=== PATIENT | male | born 1945 | race Caucasian/White ===

== ENCOUNTER 2017-03-27 10:24 | Inpatient (IN) | payer MEDICARE ==
[2017-03-27] MEDS ORDERED: Ondansetron INJ* 2 MG/ML VIAL IV ONE (10:56)
[2017-03-27] MEDS ORDERED: Morphine INJ* 4 MG/ML 1 ML CARPUJECT IV ONE ×2 (10:56→13:03)
--- NOTE | 2017-03-27 11:06 | ED ---
Lower Extremity - HPI Summary HPI Summary: Pt here w/ Rt hip pain since fall out of bed this morning. States he "just fell " - lost his footing - no dizziness, SOB, chest pain, weakness. Reports falling forward and catching himself with his Rt arm and then landed on Rt hip. Denies head injury and no LOC, neck pain, shoulder pain, chest pain or UE pain. Denies numbness, tingling, weakness into LE's but pain is worse w/ moving Rt LE d/t hip pain. This is also worse w/ touching. Has not eaten breakfast nor had anything yet for pain. Lives alone at [place]. Denies medical issues and takes no medications. Smokes. - History of Current Complaint Chief Complaint: EDExtremityLower Stated Complaint: RT HIP PAIN Time Seen by Provider: 03/27/17 10:47 Hx Obtained From: Patient Pain Intensity: 6 - Allergies/Home Medications Allergies/Adverse Reactions: Allergies Allergy/AdvReac Type Severity Reaction Status Date / Time No Known Allergies Allergy Verified 03/27/17 10:59 Home Medications: Home Medications NK [No Home Medications Reported] 03/27/17 [History Confirmed 03/27/17] PMH/Surg Hx/FS Hx/Imm Hx Previously Healthy: Yes Endocrine/Hematology History: Denies: Hx Anticoagulant Therapy, Hx Blood Disorders Respiratory History: Reports: Hx Chronic Obstructive Pulmonary Disease (COPD) - Immunization History Date of Tetanus Vaccine: unknown Date of Influenza Vaccine: NO Infectious Disease History: No Infectious Disease History: Denies: Traveled Outside the [place] in Last 30 Days - Family History Known Family History: Positive: None - Social History Occupation: Retired Lives: Alone - [place] Alcohol Use: None Hx Substance Use: No Substance Use Type: Reports: None Hx Tobacco Use: Yes Smoking Status (MU): Current Every Day Smoker Length of Time of Smoking/Using Tobacco: <1PPD Review of Systems Constitutional: Negative Negative: Fever, Chills, Fatigue Eyes: Negative Negative: Photophobia, Blurred Vision, Diplopia ENT: Negative Negative: Dental Pain, Sore Throat Cardiovascular: Negative Negative: Chest Pain Respiratory: Negative Negative: Shortness Of Breath Gastrointestinal: Negative Negative: Abdominal Pain, Vomiting, Diarrhea, Nausea Positive: no symptoms reported Positive: Arthralgia Skin: Negative Neurological: Negative Negative: Headache, Weakness, Paresthesia, Numbness, Syncope, Slurred Speech Psychological: Normal All Other Systems Reviewed And Are Negative: Yes Physical Exam Triage Information Reviewed: Yes Vital Signs On Initial Exam: Initial Vitals Temp Pulse Resp BP Pulse Ox 99.2 F 81 24 168/94 98 03/27/17 10:37 03/27/17 10:37 03/27/17 10:37 03/27/17 10:37 03/27/17 10:37 Vital Signs Reviewed: Yes Appearance: Positive: Well-Appearing - appears comfortable lying on stretcher w / Rt hip flexed, Rt knee flexed and Rt ankle flexed - he does not want to move out of this position, Thin Skin: Positive: Warm, Dry - no erythema, no ecchymosis, no skin breakdown observed over affected area Head/Face: Positive: Normal Head/Face Inspection Eyes: Positive: Normal, EOMI, MARTI, Conjunctiva Clear ENT: Positive: Normal ENT inspection, Hearing grossly normal, Pharynx normal, TMs normal - no hemoptympanum Dental: Negative: Dental Fracture @ Neck: Positive: Supple, Nontender - no pain w/ ROM cervical spine Respiratory/Lung Sounds: Positive: Breath Sounds Present Cardiovascular: Positive: Normal, RRR, Pulses are Symmetrical in both Upper and Lower Extremities, S1, S2 Abdomen Description: Positive: Nontender, No Organomegaly, Soft Bowel Sounds: Positive: Present Musculoskeletal: Positive: Strength/ROM Intact - FROM UE's and Rt clavicle with deformity - NTTP and no crepitus (appears old), Limited @ - Pt can move toes and ankle on Rt but does not move knee and hip d/t pain., Pain @ - TTP over greater trochanter and SI joint; leg is flexed so cannot asses for classis signs of long and externally rotated Neurological: Positive: Sensory/Motor Intact, Alert, Oriented to Person Place, Time, CN Intact II-III Psychiatric: Positive: Normal - Aneta Coma Scale Coma Scale Total: 15 Diagnostics - Vital Signs Vital Signs Temp Pulse Resp BP Pulse Ox 03/27/17 10:37 99.2 F 81 24 168/94 98 - Laboratory Result Diagrams: 03/27/17 12:35 Lab Statement: Any lab studies that have been ordered have been reviewed, and results considered in the medical decision making process. Re-Evaluation - Re-Evaluation First Eval Change: Improved - pain improved w/ morphine 4mg however worse after XR's - additional 4mg ordered as pt is tolerating this well. Lower Extremity Course/Dx - Course Course Of Treatment: Pt presents w/ Rt hip pain after falling out of bed this morning. Denies any other injuries and was alert throughout the process. He denies medical issues and admits to smoking just less than 1 PPD. His XR report (and image reviewed) reveals Rt femoral neck fx. Spoke w/ Dr. Stevenson who agrees to perform surgery tomorrow - will admit to medicine. Dr. Martin accepts pt. Pre-op w/u initiated and CT pelvis ordered for further information for Dr. Stevenson. Pt comfortable at time of transition of care. - Diagnoses Provider Diagnoses: Closed right hip fracture Discharge - Discharge Plan Condition: Stable Disposition: ADMITTED TO [facility]
--- NOTE | 2017-03-27 12:45 | RAD ---
INDICATION: Right hip injury. COMPARISON: There are no prior studies available for comparison. TECHNIQUE: An AP view of the pelvis and frontal and lateral views of the right hip were obtained. FINDINGS: There appears be a slightly displaced fracture of the right femoral neck partially obscured by the greater trochanter. Joint spaces appear maintained. IMPRESSION: RIGHT FEMORAL NECK FRACTURE. THIS CAN BE FURTHER DEFINED WITH CT IMAGING CLINICALLY NEEDED.
[2017-03-27 12:56] LABS: Hematocrit 43 % (42-52); Hemoglobin 14.2 g/dl (14.0-18.0); Mean Corpuscular HGB Conc 33 g/dl (31-36); Mean Corpuscular Hemoglobin 32 pg (27-31); Mean Corpuscular Volume 96 fL (80-94); Mean Platelet Volume 7 um3 (7.4-10.4); Red Blood Count 4.45 10^6/ul (4.0-5.4); Red Cell Distribution Width 13 % (10.5-15); White Blood Count 11.6 10^3/ul (3.5-10.8)
[2017-03-27 12:57] LABS: Add Diff/Slide Review? Slide Review Added; Comments Flag Yes
[2017-03-27 13:15] LABS: Albumin 3.9 g/dL (3.2-5.2); BUN/Creatinine Ratio 15.2 (8-20); Calcium 9.1 mg/dL (8.6-10.3); Globulin 3.2 g/dL (2-4); Potassium 4.2 mmol/L (3.5-5.0); Total Bilirubin 0.7 mg/dL (0.2-1.0); Total Protein 7.1 g/dL (6.4-8.9)
--- NOTE | 2017-03-27 13:24 | RAD ---
INDICATION: Right hip fracture. COMPARISON: Chest x-ray August 13, 2016 TECHNIQUE: An AP semierect portable view obtained at 13 at 3 hours is submitted. FINDINGS: Bones/Soft Tissues: There are no acute bony findings. Cardiomediastinal: The cardiomediastinal silhouette is normal. Lungs: There are no infiltrates. There is hyperinflation Pleura: There are no pleural effusions. Other: None IMPRESSION: HYPERINFLATION. NO ACUTE FINDINGS
[2017-03-27] MEDS ORDERED: oxyCODONE/Acetamin 5/325 MG* TAB PO PRN ×2 (14:23→14:24)
[2017-03-27] MEDS ORDERED: Acetaminophen TAB* 325 MG PO PRN (14:23)
[2017-03-27] MEDS ORDERED: Ondansetron INJ* 2 MG/ML VIAL IV PRN (14:23)
[2017-03-27] MEDS: Morphine INJ* 2 MG/ML 1 ML SYRINGE (TWO MG - NEW SYRINGE VERSION) IV PRN (16:01)
[2017-03-27] MEDS ORDERED: Metoclopramide IV* 5 MG/ML 2 ML VIAL IV PRN (17:41)
[2017-03-27] MEDS ORDERED: Metoclopramide IV* 5 MG/ML 2 ML VIAL ONE (17:44)
[2017-03-27] MEDS ORDERED: Heparin VIAL(*) 5000 UNITS/ML VIAL (FIVE THOUSAND) SUBCUT SCH (22:00)
--- NOTE | 2017-03-27 22:12 | HP ---
CC: Dr. Rodney Bentley * HISTORY AND PHYSICAL: DATE OF ADMISSION: 03/27/17 PRIMARY CARE PROVIDER: Dr. Rodney Bentley. ATTENDING PHYSICIAN: Dr. Faizan Martin* (dictated by Saloni Huitron NP). HISTORY OF PRESENT ILLNESS: Mr. Guerra is a 72-year-old male with past medical history significant for COPD, who presents to the emergency room after slipping out of bed, resulting in right hip pain and inability to ambulate. The patient states that he has been in his usual state of health. He denies any recent fever, chills, chest pain, shortness of breath, nausea, vomiting, diarrhea, or abdominal pain. He denies any urinary symptoms. He reports a cough that is nonproductive. He denied any lightheadedness or dizziness prior to the accident. He also denied any other injuries from his fall. He was brought by EMS to the emergency room for further evaluation. While in the ER, the patient received IV morphine and Zofran. He had a hip and pelvis x-ray that revealed a right femoral neck fracture. He had a chest x-ray showing hyperinflation and no acute findings. Orthopedic Surgery was consulted while the patient was in the emergency room and they asked for the hospitalists to admit the patient. PAST MEDICAL HISTORY: COPD. PAST SURGICAL HISTORY: None. HOME MEDICATIONS: None. ALLERGIES: No known drug allergies. FAMILY HISTORY: The patient denies any family history of coronary artery disease, diabetes mellitus, or cancer. SOCIAL HISTORY: The patient smokes 5 cigarettes a day. He states he has smoked for many years. He denies alcohol or recreational drug use. He has nobody to be a surrogate decision maker at this time. REVIEW OF SYSTEMS: I performed a 14-point review of systems. All the pertinent positives and negatives are mentioned in the history of present illness. The remaining review of systems is negative. PHYSICAL EXAMINATION GENERAL APPEARANCE: The patient is an elderly appearing male, who is pleasant and appears to be in no acute distress. VITAL SIGNS: Temperature 99.2, heart rate 73, respiratory rate 20, O2 sat 93% on room air, blood pressure 154/81. HEENT: Head: Normocephalic, atraumatic. EENT: Pupils are equal and reactive to light. Extraocular movements are intact. RESPIRATORY: There is no accessory muscle use. The lungs are clear to auscultation bilateral. CARDIOVASCULAR: Regular rate and rhythm. S1 and S2 present. There are no murmurs, rubs, or gallops heard. ABDOMEN: Soft, nontender, nondistended. There are bowel sounds present x4. EXTREMITIES: There is no lower extremity edema. DP and PT pulses are 2+ and symmetric. MUSCULOSKELETAL: There is no clubbing or cyanosis noted. The patient is able to dorsi and plantar flex bilateral. He has pain with movement of his right lower extremity. NEUROLOGICAL: The patient is alert and oriented x4. Cranial nerves II through XII are grossly intact. PSYCHOLOGICAL: The patient is calm and cooperative. SKIN: There are no rashes or abnormalities seen. DIAGNOSTIC STUDIES/LAB DATA: Sodium 133, potassium 4.2, chloride 99, CO2 27, BUN 10, creatinine 0.66, glucose 115. White blood cell count 11.6, hemoglobin 14.2, hematocrit 43, and platelet count 214. EKG shows a sinus rhythm and a rate of 70s. There is T-wave inversion in aVL. There is no previous EKG for comparison. 1. Chest x-ray from today. Radiologist's impression: Hyperinflation. No acute findings. 2. Pelvis CT from today is still pending. IMPRESSION: Mr. Guerra is a 72-year-old male with past medical history significant for chronic obstructive pulmonary disease, who presents to the emergency room after slipping off the side of his bed and falling, resulting in a right femoral neck fracture. He will be admitted as an inpatient for his right femoral neck fracture. ASSESSMENT/PLAN: 1. Right femoral neck fracture. Orthopedic Surgery will plan to surgically repair the patient's hip tomorrow. He will be provided with pain medication. For now, he will be on bedrest. I suspect he will need rehab. He states that he is able to walk around his apartment, but does not go grocery shopping. Has METs score less than 4. According to the RCRI, he has 0 points placing him at a class I risk and a 0.4% risk of a major cardiac event. The patient needs no further cardiac workup at this time. He is medically optimized and may proceed to the operating room when Orthopedic Surgery is ready. He will be made n.p.o. after midnight tonight in preparation for surgery tomorrow. 2. Leukocytosis. The patient has slight leukocytosis; however, his chest x- ray is negative. This could just be secondary to the stress of him falling but I will check a urinalysis on him as often elderly people fall when they have a urinary tract infection. 3. Chronic obstructive pulmonary disease. The patient is not on any inhalers. He has no signs of an exacerbation at this time. 4. Fluids, electrolytes, and nutrition. The patient will be on a regular diet. N.p.o. after midnight. 5. Code status. Full code. 6. DVT prophylaxis. The patient is at highest risk. He will get a dose of subcu heparin tonight and then will hold it for surgery and he will also have SCDs. 7. Disposition. Inpatient. TIME SPENT: Time for this admission was approximately 60 minutes, greater than half of that was spent [id number] with the patient discussing medications, past medical history, and the events leading up to his arrival today, and performing a physical examination. The case has been reviewed with the attending , Dr. Martin, who agrees with the plan of care. Reviewed by JANICE MOSS 04/01/171958 [id number]/[facility] #: [id number] [place]
--- NOTE | 2017-03-27 23:44 | CONS ---
ORTHOPEDIC HISTORY AND PHYSICAL/CONSULTATION: DATE OF CONSULT: 03/27/17 CONSULTING SERVICE: Emergency Room. CHIEF COMPLAINT: Right hip pain. HISTORY OF PRESENT ILLNESS: This is a 72-year-old man who states that he fell when getting out of be d this morning. He is not sure why he fell, but denies any dizziness or head strike. Reports today had right hip pain afterwards and was unable to ambulate. Denies any prior problems with the right h ip. He does report that at baseline, he ambulates without any assistive devices. Denies pain anywhe re else. Pain is described as constant, mild, sharp and is in the right hip and groin region, improv ed with rest and worsened with motion of the right hip. PAST MEDICAL HISTORY: COPD. PAST SURGICAL HISTORY: Denies. MEDICATIONS: Denies. ALLERGIES: No known drug allergies. FAMILY HISTORY: Noncontributory. SOCIAL HISTORY: Lives alone at [place]. Reports that he is ambulating without assistive devices. He currently is an everyday smoker. REVIEW OF SYSTEMS: Negative for recent fever, chills, fatigue, weight loss, weight gain, shortness o f breath, chest pain, sore throat, cough, emesis, hematuria, rash, and generalized weakness. PHYSICAL EXAMINATION: Temperature 97.6, pulse 67, respiratory rate 20, oxygen saturation 93% on 2 L of O2 nasal cannula, blood pressure 182/89. He is well appearing and in no apparent distress. He wa s lying in the hospital bed, eating dinner and is comfortable without any motion. Skin: No skin rey akdown, lesions, or ulcers are appreciated. HEENT: Nonicteric sclerae. Extraocular muscles are int act. Cardiovascular: Heart with a regular rate and rhythm. No wheezes. Extremities are warm and we ll perfused. Abdomen: Soft, nontender, nondistended. Musculoskeletal: Examination of the right low er extremity reveals the skin is intact. There is some mild tenderness to palpation laterally at the hip. He does have pain with log roll and heel strike. He is able to flex and extend his ankle as w ell as toes. He has a palpable DP pulse. Sensation is intact to light touch. There are no skin lesi ons appreciated. Neurologic: Alert and oriented to person, place, and time. Psychiatric: Normal m ood and affect. IMAGING: X-rays and CT scan of the right hip reveal a displaced femoral neck fracture. LABORATORY DATA: White count 11.6, hematocrit 43, platelets 214. ASSESSMENT AND PLAN: A 72-year-old man who is ambulatory at baseline, sustained what sounds to be a mechanical fall with a displaced right femoral neck fracture. I discussed the diagnosis and prognosis at length with him today. Given the nature of the fracture, he will not be able to be ambulatory as it is now; therefore, nonoperative treatment would consist largely bedrest and nonweightbearing on t he right lower extremity. I discussed with him that this is very problematic in anyone, but certainl y someone of his age. We also discussed operative treatments and I specifically discussed a right hi p hemiarthroplasty with him at length today both about the procedure and the nature and risks of surg guerda in general. I discussed the risks of wound, infection, fracture of the femur, persistent hip juan n, needing further surgery, blood clot, bleeding, as well as a chance of a catastrophic complication such as . After this discussion, he did express his desire to move forward with surgery tomorro w as we will plan on doing a right hip hemiarthroplasty. I have already spoken with a medical servic laureano and he has been cleared from their standpoint, so he will be n.p.o. at midnight and we will plan on doing surgery tomorrow morning, unless anything changes before then. [id number]/[facility] #: [id number]
[2017-03-28 05:20] LABS: Urine Bacteria Absent (Absent); Urine Bilirubin Negative (Negative); Urine Glucose 1+(50 mg/dL) (Negative); Urine Nitrite Negative (Negative)
[2017-03-28] MEDS: Morphine INJ* 2 MG/ML 1 ML SYRINGE (TWO MG - NEW SYRINGE VERSION) IV PRN (07:55)
[2017-03-28] MEDS ORDERED: Famotidine IV* 10 MG/ML 2 ML (20 mg) IV SLOW PU ONE (08:00)
[2017-03-28] MEDS ORDERED: Pneumococcal *Vac Polyvalent 0.5 ML VIAL IM ONE (09:00)
[2017-03-28] MEDS ORDERED: Influenza VAC *QUAD* 2017-18* 0.5 ML SYRINGE IM ONE (09:00)
--- NOTE | 2017-03-28 09:40 | PN ---
Subjective Date of Service: 03/28/17 Interval History: Patient seen and examined. Per staff, patient was mistakenly delivered a breakfast tray and did not understand that he was not to eat before surgery and took a few bites of egg. Ortho aware. Hemiarthroplasty will be postponed until later today. Discussed with RN and charge nurse. Patient reports hip pain is controlled, no n/v, no headache, no chest pain, no SOB or cough, no urinary complaints. No further complaints. Objective Active Medications: Acetaminophen (Tylenol Tab*) 650 mg PO Q4H PRN PRN Reason: FEVER/PAIN Lactated Ringer's (Lactated Ringers 1000 Ml Bag*) 1,000 mls @ 125 mls/hr IV PER RATE SUSAN Last Admin: 03/28/17 02:16 Dose: 125 mls/hr Metoclopramide HCl (Reglan Iv*) 10 mg IV Q6H PRN PRN Reason: NAUSEA/VOMITING Last Admin: 03/28/17 07:54 Dose: 10 mg Morphine Sulfate (Morphine Inj (Syringe)*) 2 mg IV Q4H PRN PRN Reason: PAIN - BREAKTHROUGH Last Admin: 03/28/17 07:55 Dose: 2 mg Ondansetron HCl (Zofran Inj*) 4 mg IV Q6H PRN PRN Reason: NAUSEA Last Admin: 03/27/17 15:58 Dose: 4 mg Oxycodone/Acetaminophen (Percocet 5/325 Tab*) 1 tab PO Q4H PRN PRN Reason: PAIN - MILD TO MODERATE Oxycodone/Acetaminophen (Percocet 5/325 Tab*) 2 tab PO Q4H PRN PRN Reason: PAIN - MODERATE TO SEVERE Vital Signs - 8 hr 03/28/17 03/28/17 03/28/17 03:54 07:43 07:55 Temperature 97.6 F 98.7 F Pulse Rate 84 66 Respiratory 16 16 18 Rate Blood Pressure 147/83 155/76 (mmHg) O2 Sat by Pulse 96 97 Oximetry 03/28/17 08:53 Temperature Pulse Rate Respiratory 18 Rate Blood Pressure (mmHg) O2 Sat by Pulse Oximetry Oxygen Devices in Use Now: Nasal Cannula Appearance: Mildly disheveled, thin. NAD Eyes: No Scleral Icterus, PERRLA Ears/Nose/Mouth/Throat: - - poor dentition Neck: Trachea Midline Respiratory: Symmetrical Chest Expansion and Respiratory Effort, Clear to Auscultation - diminished bases Cardiovascular: NL Sounds; No Murmurs; No JVD, RRR Abdominal: NL Sounds; No Tenderness; No Distention Extremities: No Edema, No Clubbing, Cyanosis Skin: No Rash or Ulcers Neurological: Alert and Oriented x 3, NL Sensation - +distal pulses on affected side, motor intact Lines/Tubes/Other Access: Clean, Dry and Intact Peripheral IV - CDI Nutrition: - - NPO for surgery Result Diagrams: 03/27/17 12:35 03/27/17 12:35 Assess/Plan/Problems-Billing Assessment: - Patient Problems (1) Femoral neck fracture Code(s): S72.009A - FRACTURE OF UNSP PART OF NECK OF UNSP FEMUR, INIT SNOMED Code(s): 2196604 Comment: - 2/2 to fall/traumatic injury - Plan for hemiarthroplasty later today - Surgical team aware of PO intake this AM - Continue IVF and strict NPO - Pain control as needed (2) COPD (chronic obstructive pulmonary disease) Code(s): J44.9 - CHRONIC OBSTRUCTIVE PULMONARY DISEASE, UNSPECIFIED SNOMED Code(s): 11934167 Comment: - Respiratory status stable - Supplemental O2 as needed - Recommend IS post-op (3) Leukocytosis Code(s): D72.829 - ELEVATED WHITE BLOOD CELL COUNT, UNSPECIFIED SNOMED Code(s) : 703022694 Comment: - Likely recative 2/2 fracture - Monitor WBCs and trend temps, currently afebrile Status and Disposition: This is a 72 year old male with hx of COPD and traumatic right hip fx that will remain inpatient for hemiarthroplasty later today. DC planning likely will need rehab, PT/OT. Counseling and/or Coordination of Care Minutes: Coordinated with patient and staff. Time spent >45mins
[2017-03-28] MEDS ORDERED: Midazolam* 1 MG/ML 10 ML VIAL (10 MG) ONE (11:35)
[2017-03-28] MEDS ORDERED: Atracurium* 10 MG/ML 10 ML VIAL ONE (11:35)
[2017-03-28] MEDS ORDERED: fentaNYL* 50 MCG/ML 2 ML VIAL (100 MCG VIAL) ONE (11:35)
[2017-03-28] MEDS ORDERED: KETAMINE HCL* 50 MG/ML 10 ML VIAL ONE (11:35)
[2017-03-28] MEDS ORDERED: Morphine PF AMP (0.5MG/ML)* 5 MG/10 ML AMP ONE (11:38)
[2017-03-28] MEDS ORDERED: ceFAZolin 2 GM PREMIX (*) 2 GM/50 ML BAG IVPB ONE (12:10)
--- NOTE | 2017-03-28 12:30 | PN ---
Progress Note - Progress Note Date of Service: 03/28/17 SOAP: Subjective: pain controlled [] Objective: Temp Pulse Resp BP Pulse Ox 98.7 F 66 18 155/76 97 03/28/17 07:43 03/28/17 07:43 03/28/17 08:53 03/28/17 07:43 03/28/17 07:43 RLE: skin intact pain with log roll foot wwp [] Assessment: R displaced FNFx. Discussed at length with pt and sister Padmaja today. She is only known relative. We discussed nature of fracture, indications for surgery, and choice of hemiarthroplasty. We discussed risks of surgery at length. they both expressed their desire to move forward with surgery and informed written consent obtained. [] Plan: OR for R hip hemiarthroplasty []
[2017-03-28] MEDS ORDERED: Naloxone* 2 MG in NS 0.9% 250 ML* 250 ML IV PRN (13:14)
[2017-03-28] MEDS ORDERED: Scopolamine PATCH Remove* 1 NOTE MISC PATCH OFF PRN (13:14)
[2017-03-28] MEDS ORDERED: Scopolamine 1.5 mg* PATCH TRANSDERM PRN (13:14)
[2017-03-28] MEDS ORDERED: Nalbuphine* 20 MG/ML 1 ML VIAL IV PRN (13:14)
[2017-03-28] MEDS ORDERED: oxyCODONE/Acetamin 5/325 MG* TAB PO PRN (13:14)
[2017-03-28] MEDS ORDERED: Naloxone* 0.4 MG/ML 1 ML VIAL IV PRN (13:14)
[2017-03-28] MEDS ORDERED: DiMENhydriNATE IV* 50 MG/ML VIAL IV PUSH PRN (13:14)
[2017-03-28] MEDS ORDERED: Ondansetron INJ* 2 MG/ML VIAL IV PRN (13:14)
[2017-03-28] MEDS ORDERED: diPHENhydraMINE IV* 50 MG/ML 1 ml VIAL (BENADRYL) IV PRN (13:14)
[2017-03-28] MEDS ORDERED: PROCHLORPERAZINE INJ 5 MG/ML 2 ML VIAL IV PRN (13:14)
[2017-03-28] MEDS ORDERED: Ketorolac INJ* 30 MG/ML 1 ML VIAL IV PRN (13:14)
[2017-03-28] MEDS ORDERED: Levalbuterol 0.63MG/3ML NEB* UNIT OF USE INH PRN (13:19)
[2017-03-28] MEDS ORDERED: Bupivacaine 0.5% SDV PF* 30 ML VIAL ONE (14:17)
[2017-03-28] MEDS ORDERED: Phenylephrine IV* 40 MCG/ML 10 ML SYRINGE ONE (14:30)
[2017-03-28] MEDS ORDERED: EPHEDrine (Pressors)* 50 MG/ML VIAL ONE (14:31)
[2017-03-28] MEDS ORDERED: PROCHLORPERAZINE INJ 5 MG/ML 2 ML VIAL ONE (14:31)
[2017-03-28] MEDS ORDERED: Dexamethasone IV* 4 MG/ML 1 ML (4 MG) ONE (14:31)
[2017-03-28] MEDS ORDERED: Flumazenil* 0.1 MG/ML 5 ML MDV ONE (14:39)
[2017-03-28] MEDS ORDERED: Levalbuterol 0.63MG/3ML NEB* UNIT OF USE INH ONE (15:01)
--- NOTE | 2017-03-28 15:23 | RAD ---
INDICATION: Right hip arthroplasty COMPARISON: Right hip March 27, 2017 TECHNIQUE: An AP view of the pelvis and AP views of the hip in neutral and abducted position were obtained FINDINGS: There is right hip arthroplasty. The prosthesis appears normally seated. There is no evidence of hardware failure. There are laterally place skin reyna consistent with recent surgery. There are vascular calcifications. IMPRESSION: RIGHT HIP ARTHROPLASTY. NO EVIDENCE OF HARDWARE FAILURE.
[2017-03-28] MEDS ORDERED: hydrALAZINE IV* 20 MG/ML VIAL ONE (15:49)
--- NOTE | 2017-03-28 16:53 | OP ---
OPERATIVE REPORT: DATE OF OPERATION: 03/28/17 DATE OF : 47 SURGEON: Lawrence Millan MD ORTHOPHOTOGRAPHY TECHNICIAN: KARTHIKEYAN Smith ANESTHESIOLOGIST: Stuart Ureña MD ANESTHESIA: Spinal and MAC. PRE-OP DIAGNOSIS: Right displaced femoral neck fracture. POST-OP DIAGNOSIS: Right displaced femoral neck fracture. OPERATIVE PROCEDURE: Right hip hemiarthroplasty. IMPLANTS: Dryfork Accolade bipolar hemiarthroplasty, size 5 cemented stem, 51 mm head. ESTIMATED BLOOD LOSS: 50 cc. DRAINS: None. SPECIMENS: Femoral head to pathology. COMPLICATIONS: None. STATUS: Stable from the operating room to the recovery room and then readmitted to the hospitalist service. INDICATIONS FOR PROCEDURE: Mr. Guerra sustained a mechanical fall out of bed yesterday, sustained a displaced right femoral neck fracture. Both operative and nonoperative treatment alternatives were reviewed. Further, the nature and risks of surgery were reviewed in careful detail on the hospital floor as well as in the preoperative holding area. Our discussions regarding the risks of surgery included, but were not limited to infection, wound problems, nerve injury, leg length discrepancy, dislocation, neuroma, RSD, persistent symptoms, blood clot or pulmonary embolism and even the remote chance of a catastrophic complication including loss of limb or . DESCRIPTION OF PROCEDURE: The patient was seen in the preoperative holding unit and informed written consent was obtained. The appropriate extremity was marked. The patient was then brought to the operating room and anesthesia was induced. The patient was then carefully positioned on the operating room table. All bony prominences were padded with great care. A chlorhexidine based pre-scrub was performed followed by a standard prep and drape with ChloraPrep and a surgical safety pause was then conducted in which we confirmed the appropriate patient, extremity, planned procedure, availability of equipment , indication, administration of prophylactic antibiotics, and DVT prophylaxis in the form of a compression boot on the nonsurgical extremity. An approximately 10 cm incision was made overlying the lateral aspect of the right hip. An anterolateral approach to the hip was utilized. Dissection was carried down to the level of the iliotibial band and this was divided in line with the fibers. A Charnley retractor was then placed. We opened up the bursa and split the gluteus medius at the junction of superior two- thirds and inferior one-third of the muscle. We raised the medius as a flap and then held this underneath the Charnley retractor. We then performed a capsulotomy in line with the femoral neck. External rotation of the leg exposed the femoral neck. We carried this down to the level of the lesser trochanter which was palpated. We then used the cutting guide to determine the level of the femoral neck cut. This was made approximately 1 fingerbreadth above the level of the lesser trochanter. We then utilized a saw to make the bone cut and removed the residual femoral neck. I made a counter cut to avoid injury in the greater trochanter. We then removed the femoral head from the acetabulum. This was sized to 52 mm. The overall cartilage within the acetabulum appeared to be in good shape. The ligamentum teres was removed. We trialed a 52 mm head and found this to be slightly too big with a bit of a rim fit. I then tried a 51 mm head and this had a much better fit within the acetabulum. We then irrigated. We then positioned the leg in the leg bag anteriorly. This gave good access to the femur. A jude cutter osteotome was utilized followed by a canal finder. We utilized hand reamers and then broached the femur. We found that the size 5 reamer and broach had a snug fit. We then trialed this and reduced the prosthesis. He was stable throughout the range of motion and leg lengths were noted to be nearly equivalent. We then utilized the calcar reamer. The trials were then removed and the implants were opened on the back table. At this point, we placed a cement restrictor and the femoral canal was copiously irrigated with pulse lavage. We placed a lap sponge in the acetabulum. We then utilized sponges down the femoral canal to dry the canal. We placed a centralizer on the tip of the stem. Cement was mixed on the back table. When this was ready to be injected, cement was injected into the canal and then pressurized. We then placed the stem into the position in the canal with care taken to fit into the appropriate level that we had to place the broach. We also ensured that the version was appropriate to match the [place] anteversion. Once the cement had fully set, we removed the lap sponge from the acetabulum. We then copiously irrigated again. We placed the bipolar head components into position and tapped these in place. We then reduced the hip. Leg lengths again were checked and were noted to be nearly symmetric. There was excellent range of motion with no instability with external rotation and extension, or flexion and internal rotation. We could get the leg straight and we could also flex to 90 degrees without difficulty. We then irrigated copiously and closed in layers utilizing #5 Ethibond for the capsular layer, #5 Ethibond for the vastus gluteus layer, #5 Ethibond as well as #1 Vicryl for the iliotibial band, and then 3-0 Monocryl for the deep dermal layer and reyna for the skin. A sterile dressing was then applied. The patient was carefully turned back on to the supine position. Leg lengths were noted to be nearly equal. The patient was then awakened from anesthesia and transferred to the recovery room in stable condition. There were no complications. All needle and sponge counts were correct at the end of the case. ATTESTATION: I attest that I was present, scrubbed, and performed the entire procedure myself. POSTOPERATIVE PLAN: Tulio will be readmitted to the hospitalist service postoperatively and may be weightbearing as tolerated. Followup will be in 2 weeks for likely staple removal and Steri-Strip application. DVT prophylaxis is recommended for 1 month postoperatively. Anterior hip precautions will be maintained for 1 month. [id number]/[facility] #: [id number] [facility]
[2017-03-28] MEDS: ceFAZolin 1 GM in Dextrose (*) 1 GM/50 ML BAG IVPB SCH (20:28)
[2017-03-29] MEDS: ceFAZolin 1 GM in Dextrose (*) 1 GM/50 ML BAG IVPB SCH ×2 (04:04→12:26)
[2017-03-29] MEDS ORDERED: Influenza VAC *QUAD* 2017-18* 0.5 ML SYRINGE IM ONE (09:00)
[2017-03-29] MEDS ORDERED: Pneumococcal *Vac Polyvalent 0.5 ML VIAL IM ONE (09:00)
[2017-03-29] MEDS ORDERED: ALPRAZolam TAB* 0.25 MG PO PRN (09:02)
[2017-03-29] MEDS ORDERED: Albuterol 2.5 MG/3 ML NEB.SOL* (0.083%) INH PRN (09:04)
--- NOTE | 2017-03-29 09:10 | PN ---
Subjective Date of Service: 03/29/17 Interval History: Patient seen and examined. Very agitated, per RN, overnight staff said patient seemed agitated as well. Patient states pain is not controlled. Requests pain meds now. Verbal reassurance provided. Patient also coughing, unproductive and is very anxious. Denies acute SOB, denies chest pain. States he was able to sleep ok last night. No n/v, tolerating PO. Objective Active Medications: Acetaminophen (Tylenol Tab*) 650 mg PO Q4H PRN PRN Reason: FEVER/PAIN Alprazolam (Xanax Tab*) 0.25 mg PO TID PRN PRN Reason: AGITATION Lactated Ringer's (Lactated Ringers 1000 Ml Bag*) 1,000 mls @ 125 mls/hr IV PER RATE SUSAN Last Admin: 03/28/17 23:05 Dose: 125 mls/hr Cefazolin Sodium/Dextrose (Kefzol 1 Gm In Dextrose Duplex (*)) 1 gm in 50 mls @ 200 mls/hr IVPB Q8H [facility] Stop: 03/29/17 12:44 Last Admin: 03/29/17 04:04 Dose: 200 mls/hr Ketorolac Tromethamine (Toradol Inj*) 15 mg IV Q6H PRN PRN Reason: PAIN Metoclopramide HCl (Reglan Iv*) 10 mg IV Q6H PRN PRN Reason: NAUSEA/VOMITING Last Admin: 03/28/17 07:54 Dose: 10 mg Morphine Sulfate (Morphine Inj (Syringe)*) 2 mg IV Q4H PRN PRN Reason: PAIN - BREAKTHROUGH Last Admin: 03/28/17 07:55 Dose: 2 mg Ondansetron HCl (Zofran Inj*) 4 mg IV Q6H PRN PRN Reason: NAUSEA Last Admin: 03/27/17 15:58 Dose: 4 mg Oxycodone/Acetaminophen (Percocet 5/325 Tab*) 1 tab PO Q4H PRN PRN Reason: PAIN - MILD TO MODERATE Oxycodone/Acetaminophen (Percocet 5/325 Tab*) 2 tab PO Q4H PRN PRN Reason: PAIN - MODERATE TO SEVERE Oxycodone/Acetaminophen (Percocet 5/325 Tab*) 1 tab PO Q4H PRN PRN Reason: Moderate Pain Last Admin: 03/29/17 00:28 Dose: 1 tab Pharmacy Profile Note (Scopolamine Patch Remove*) 1 note PATCH OFF .AFTER 72 HOURS PRN PRN Reason: nausea Stop: 03/31/17 13:15 Scopolamine (Transderm-Scop 1.5 Mg Patch*) 1 patch TRANSDERM Q72H PRN PRN Reason: nausea Vital Signs - 8 hr 03/29/17 03/29/17 03/29/17 01:14 02:16 03:26 Temperature 97.7 F Pulse Rate 76 Respiratory 16 16 16 Rate Blood Pressure 142/56 (mmHg) O2 Sat by Pulse 98 Oximetry 03/29/17 03/29/17 04:11 07:21 Temperature 98.9 F Pulse Rate 70 Respiratory 18 20 Rate Blood Pressure 127/63 (mmHg) O2 Sat by Pulse 91 Oximetry Oxygen Devices in Use Now: None, Nasal Cannula Appearance: Anxious, moderate distress Eyes: PERRLA Ears/Nose/Mouth/Throat: Mucous Membranes Moist Neck: NL Appearance and Movements; NL JVP, Trachea Midline Respiratory: Symmetrical Chest Expansion and Respiratory Effort, - - Expiratory wheeze, dimished bases Cardiovascular: NL Sounds; No Murmurs; No JVD, RRR Extremities: No Edema, No Clubbing, Cyanosis Skin: No Rash or Ulcers, - - dressing CDI Neurological: Alert and Oriented x 3, NL Sensation, NL Muscle Strength and Tone Lines/Tubes/Other Access: Clean, Dry and Intact Montaño Nutrition: Taking PO's Result Diagrams: 03/29/17 09:23 03/29/17 09:23 Assess/Plan/Problems-Billing Assessment: This is a 72 year old male with hx of COPD, s/p R hemiarthroplasty, POD1. - Patient Problems (1) Femoral neck fracture Code(s): S72.009A - FRACTURE OF UNSP PART OF NECK OF UNSP FEMUR, INIT SNOMED Code(s): 9020858 Comment: - POD1 - Primary POC as per ortho - Hip precautions - Pain control as needed - DC IVF - DC montaño (2) COPD (chronic obstructive pulmonary disease) Code(s): J44.9 - CHRONIC OBSTRUCTIVE PULMONARY DISEASE, UNSPECIFIED SNOMED Code(s): 04774258 Comment: - Supplemental O2 as needed, keep sats>90% - IS 10x/hr while awake - Add albuterol nebs PRN for wheezing (3) Leukocytosis Code(s): D72.829 - ELEVATED WHITE BLOOD CELL COUNT, UNSPECIFIED SNOMED Code(s) : 635260382 Comment: - Likely recative 2/2 fracture - Monitor WBCs and trend temps, currently afebrile - Labs today (4) Agitation Code(s): R45.1 - RESTLESSNESS AND AGITATION SNOMED Code(s): 728642021 Comment: - Likely 2/2 stress of hospitalization and injury - Will order PRN xanax, discussed with Dr. Petersen and ortho team - Monitor mood (5) Tobacco abuse Code(s): Z72.0 - TOBACCO USE SNOMED Code(s): 265725225 Comment: - Offered nicotine replacement, patient declined - Counseled on cessation Status and Disposition: This is a 72 year old male with hx of COPD and traumatic right hip fx that will remain inpatient s/p r hemiarthroplasty. DC planning likely will need rehab, PT/ OT. Counseling and/or Coordination of Care Minutes: Coordinated with patient, RN, Dr. Petersen and Radha NAPIER, time spent >45mins
--- NOTE | 2017-03-29 09:38 | PN ---
Progress Note - Progress Note Date of Service: 03/29/17 SOAP: Subjective: POD #1 Right hip hemiarthroplasty. Pt doing ok, c/o pain to hip. Denies CP/SOB, f/c Objective: Vitals: Temp Pulse Resp BP Pulse Ox 98.9 F 70 22 127/63 91 03/29/17 07:21 03/29/17 07:21 03/29/17 09:02 03/29/17 07:21 03/29/17 07:21 Gen: A&Ox3, appears very anxious at rest R Hip: Dressing C/D/I, thigh soft with some ttp. Calf soft, NT. +f/e at ankle and MTPs. N/V intact Labs: Not available yet Assessment: POD #1 Right hip hemiarthroplasty Plan: PT/OT, OOB with assist Lovenox for DVT ppx Will likely need GODFREY after discharge
[2017-03-29 09:46] LABS: Hematocrit 35 % (42-52); Mean Corpuscular HGB Conc 34 g/dl (31-36); Mean Corpuscular Hemoglobin 33 pg (27-31); Mean Corpuscular Volume 96 fL (80-94); Mean Platelet Volume 8 um3 (7.4-10.4); Red Blood Count 3.68 10^6/ul (4.0-5.4); Red Cell Distribution Width 13 % (10.5-15); White Blood Count 9.4 10^3/ul (3.5-10.8)
[2017-03-29 09:57] LABS: Albumin 3.1 g/dL (3.2-5.2); BUN/Creatinine Ratio 18.6 (8-20); Calcium 8.3 mg/dL (8.6-10.3); EGFR African American 174.2 (>60); EGFR Non-African American 135.4 (>60); Globulin 2.7 g/dL (2-4); Potassium 3.6 mmol/L (3.5-5.0); Total Bilirubin 0.9 mg/dL (0.2-1.0); Total Protein 5.8 g/dL (6.4-8.9)
[2017-03-29] MEDS ORDERED: oxyCODONE TAB* 5 MG TAB PO PRN (10:47)
[2017-03-29] MEDS: Enoxaparin(*) 30 MG/0.3 ML SYR SUBCUT SCH (10:51)
[2017-03-29] MEDS ORDERED: Acetaminophen TAB* 325 MG PO SCH (11:00)
[2017-03-29] MEDS: oxyCODONE TAB* 5 MG TAB PO PRN (11:11)
[2017-03-29] MEDS: Acetaminophen TAB* 325 MG PO SCH ×3 (12:33→22:07)
[2017-03-30] MEDS: Acetaminophen TAB* 325 MG PO SCH ×6 (01:33→20:53)
[2017-03-30] MEDS: oxyCODONE TAB* 5 MG TAB PO PRN ×3 (08:07→15:41)
[2017-03-30] MEDS: Enoxaparin(*) 30 MG/0.3 ML SYR SUBCUT SCH (10:49)
--- NOTE | 2017-03-30 15:09 | PN ---
Subjective Date of Service: 03/30/17 Interval History: Patient seen and examined. Had some urinary retention overnight per staff and patient was uncomfortable and montaño was replaced, however, residual was only 250ml. in montaño bag. Patient states pain is better controlled today, no headache or dizziness, no chest pain, no SOB, no n/v, has not had BM yet but is passing flatus. Objective Active Medications: Acetaminophen (Tylenol Tab*) 650 mg PO Q4H SUSAN Last Admin: 03/30/17 13:00 Dose: 650 mg Albuterol (Ventolin 2.5 Mg/3 Ml Neb.Cristina*) 2.5 mg INH Q6H PRN PRN Reason: SOB/WHEEZING Alprazolam (Xanax Tab*) 0.25 mg PO TID PRN PRN Reason: AGITATION Last Admin: 03/29/17 10:51 Dose: 0.25 mg Enoxaparin Sodium (Lovenox(*)) 30 mg SUBCUT Q24H SUSAN Last Admin: 03/30/17 10:49 Dose: 30 mg Metoclopramide HCl (Reglan Iv*) 10 mg IV Q6H PRN PRN Reason: NAUSEA/VOMITING Last Admin: 03/28/17 07:54 Dose: 10 mg Morphine Sulfate (Morphine Inj (Syringe)*) 2 mg IV Q4H PRN PRN Reason: PAIN - BREAKTHROUGH Last Admin: 03/28/17 07:55 Dose: 2 mg Ondansetron HCl (Zofran Inj*) 4 mg IV Q6H PRN PRN Reason: NAUSEA Last Admin: 03/27/17 15:58 Dose: 4 mg Oxycodone HCl (Roxycodone Tab*) 5 mg PO Q4H PRN PRN Reason: PAIN - MODERATE Oxycodone HCl (Roxycodone Tab*) 10 mg PO Q4H PRN PRN Reason: PAIN - SEVERE Last Admin: 03/30/17 11:38 Dose: 10 mg Vital Signs - 8 hr 03/30/17 03/30/17 03/30/17 07:44 08:07 09:25 Temperature 98.9 F Pulse Rate 78 Respiratory 16 16 16 Rate Blood Pressure 154/65 (mmHg) O2 Sat by Pulse 93 Oximetry 03/30/17 03/30/17 03/30/17 10:51 11:33 11:38 Temperature 98.4 F Pulse Rate 68 Respiratory 16 18 16 Rate Blood Pressure 137/63 (mmHg) O2 Sat by Pulse 95 Oximetry 03/30/17 14:19 Temperature Pulse Rate Respiratory 16 Rate Blood Pressure (mmHg) O2 Sat by Pulse Oximetry Oxygen Devices in Use Now: None Appearance: Alert, NAD Eyes: No Scleral Icterus, PERRLA Ears/Nose/Mouth/Throat: Mucous Membranes Moist, - - poor dentition Neck: Trachea Midline Respiratory: Symmetrical Chest Expansion and Respiratory Effort, - - diminished bases, no wheeze Cardiovascular: NL Sounds; No Murmurs; No JVD, RRR Extremities: No Edema, No Clubbing, Cyanosis Skin: No Rash or Ulcers - dressing CDI Neurological: Alert and Oriented x 3, NL Sensation, NL Muscle Strength and Tone Nutrition: Taking PO's Result Diagrams: 03/29/17 09:23 03/29/17 09:23 Assess/Plan/Problems-Billing Assessment: This is a 72 year old male with hx of COPD, s/p R hemiarthroplasty, POD2. - Patient Problems (1) Femoral neck fracture Code(s): S72.009A - FRACTURE OF UNSP PART OF NECK OF UNSP FEMUR, INIT SNOMED Code(s): 7118718 Comment: - POD2 - Primary POC as per ortho - Hip precautions - Pain control as needed (2) COPD (chronic obstructive pulmonary disease) Code(s): J44.9 - CHRONIC OBSTRUCTIVE PULMONARY DISEASE, UNSPECIFIED SNOMED Code(s): 29803228 Comment: - Supplemental O2 as needed, keep sats>90% - IS 10x/hr while awake - Add albuterol nebs PRN for wheezing (3) Leukocytosis Code(s): D72.829 - ELEVATED WHITE BLOOD CELL COUNT, UNSPECIFIED SNOMED Code(s) : 980291795 Comment: - Resolved - Likely recative 2/2 fracture - Remains afebrile (4) Agitation Code(s): R45.1 - RESTLESSNESS AND AGITATION SNOMED Code(s): 392847246 Comment: - Likely 2/2 stress of hospitalization and injury - Xanax PRN - Mood stable today (5) Tobacco abuse Code(s): Z72.0 - TOBACCO USE SNOMED Code(s): 573185789 Comment: - Offered nicotine replacement, patient declined - Counseled on cessation (6) Acute retention of urine Code(s): R33.8 - OTHER RETENTION OF URINE SNOMED Code(s): 667228614 Comment: - With the residual amount actually measured (around 250ml), I don't feel the patient was truly retaining urine - the pain was likely radiating to low abdomen from recent hip surgery - will DC montaño today and trial to void (7) Constipation due to opioid therapy Code(s): K59.03 - DRUG INDUCED CONSTIPATION; T40.2X5A - ADVERSE EFFECT OF OTHER OPIOIDS, INITIAL ENCOUNTER SNOMED Code(s): 908474488511839 Comment: - Place on bowel regimen - Colace BID, miralax now and lactulose daily PRN - Monitor for ileus Status and Disposition: This is a 72 year old male with hx of COPD and traumatic right hip fx that will remain inpatient s/p r hemiarthroplasty. DC planning to rehab when clear by orthopedics. Counseling and/or Coordination of Care Minutes: Coordinated with patient and staff.
--- NOTE | 2017-03-30 15:13 | PN ---
Progress Note - Progress Note Date of Service: 03/30/17 SOAP: Subjective: POD #2 Right hip hemiarthroplasty. Doing ok, still c/o pain in hip. Denies CP/ SOB, denies f/c Objective: Vitals: Temp Pulse Resp BP Pulse Ox 98.4 F 68 16 137/63 95 /18/ 11:33 12/18/17 11:33 03/30/17 14:19 03/30/17 11:33 03/30/17 11:33 Gen: A&Ox3, NAD at rest. Much less anxious today R Hip: Incision C/D/I, mild edema and ecchymosis. No erythema. N/V intact Assessment: POD #2 Right hip hemiarthroplasty Plan: PT/OT Lovenox for DVT ppx Dispo per medicine
[2017-03-30] MEDS ORDERED: Polyethylene Glycol 3350* 17 GM PACKET PO ONE (15:43)
[2017-03-30] MEDS: Docusate CAP* 100 MG PO SCH (20:53)
[2017-03-31] MEDS: Acetaminophen TAB* 325 MG PO SCH ×6 (01:06→21:58)
[2017-03-31] MEDS: oxyCODONE TAB* 5 MG TAB PO PRN ×2 (07:05→14:56)
--- NOTE | 2017-03-31 08:07 | PN ---
Progress Note - Progress Note Date of Service: 03/31/17 SOAP: Subjective: []Patient seen at bedside. His pain is well controlled. Denies CP, SOB, nausea, fever or chills. Objective: Vital Signs Temp 98.0 F 03/31/17 07:32 Pulse 73 03/31/17 07:32 Resp 22 03/31/17 07:32 BP 159/70 03/31/17 07:32 Pulse Ox 98 03/31/17 07:32 Intake & Output 03/30/17 03/31/17 03/31/17 18:59 06:59 18:59 Intake Total 1300 620 Output Total 550 550 Balance 750 70 Intake: Oral 1300 620 Output: Urine 550 [place] 550 Other: # Bowel Movements 0 Laboratory Last Values WBC 9.4 10^3/ul (3.5-10.8) 03/29/17 09:23 RBC 3.68 10^6/ul (4.0-5.4) L 03/29/17 09:23 Hgb 12.0 g/dl (14.0-18.0) L 03/29/17 09:23 Hct 35 % (42-52) L 03/29/17 09:23 MCV 96 fL (80-94) H 03/29/17 09:23 MCH 33 pg (27-31) H 03/29/17 09:23 MCHC 34 g/dl (31-36) 03/29/17 09:23 RDW 13 % (10.5-15) 03/29/17 09:23 Plt Count 172 10^3/ul (150-450) 03/29/17 09:23 MPV 8 um3 (7.4-10.4) 03/29/17 09:23 Neut % (Auto) 72.2 % (38-83) 03/29/17 09:23 Lymph % (Auto) 14.1 % (25-47) L 03/29/17 09:23 Dane % (Auto) 13.6 % (1-9) H 03/29/17 09:23 Eos % (Auto) 0 % (0-6) 03/29/17 09:23 Baso % (Auto) 0.1 % (0-2) 03/29/17 09:23 Absolute Neuts (auto) 6.8 10^3/ul (1.5-7.7) 03/29/17 09:23 Absolute Lymphs (auto) 1.3 10^3/ul (1.0-4.8) 03/29/17 09:23 Absolute Monos (auto) 1.3 10^3/ul (0-0.8) H 03/29/17 09:23 Absolute Eos (auto) 0 10^3/ul (0-0.6) 03/29/17 09:23 Absolute Basos (auto) 0 10^3/ul (0-0.2) 03/29/17 09:23 Absolute Nucleated RBC 0.01 10^3/ul 03/29/17 09:23 Nucleated RBC % 0.1 03/29/17 09:23 INR (Anticoag Therapy) 0.90 (0.77-1.02) 03/27/17 12:35 Sodium 128 mmol/L (133-145) L 03/29/17 09:23 Potassium 3.6 mmol/L (3.5-5.0) 03/29/17 09:23 Chloride 95 mmol/L (101-111) L 03/29/17 09:23 Carbon Dioxide 28 mmol/L (22-32) 03/29/17 09:23 Anion Gap 5 mmol/L (2-11) 03/29/17 09:23 BUN 11 mg/dL (6-24) 03/29/17 09:23 Creatinine 0.59 mg/dL (0.67-1.17) L 03/29/17 09:23 Est GFR ( Amer) 174.2 (>60) 03/29/17 09:23 Est GFR (Non-Af Amer) 135.4 (>60) 03/29/17 09:23 BUN/Creatinine Ratio 18.6 (8-20) 03/29/17 09:23 Glucose 94 mg/dL (70-100) 03/29/17 09:23 Calcium 8.3 mg/dL (8.6-10.3) L 03/29/17 09:23 Total Bilirubin 0.90 mg/dL (0.2-1.0) 03/29/17 09:23 AST 36 U/L (13-39) 03/29/17 09:23 ALT 14 U/L (7-52) 03/29/17 09:23 Alkaline Phosphatase 46 U/L (34-104) 03/29/17 09:23 Total Protein 5.8 g/dL (6.4-8.9) L 03/29/17 09:23 Albumin 3.1 g/dL (3.2-5.2) L 03/29/17 09:23 Globulin 2.7 g/dL (2-4) 03/29/17 09:23 Albumin/Globulin Ratio 1.1 (1-3) 03/29/17 09:23 Urine Color Jodie 03/28/17 00:50 Urine Appearance Turbid 03/28/17 00:50 Urine pH 5.0 (5-9) 03/28/17 00:50 Ur Specific [place] 1.025 (1.010-1.030) 03/28/17 00:50 Urine Protein Negative (Negative) 03/28/17 00:50 Urine Ketones Trace (Negative) H 03/28/17 00:50 Urine Blood 2+ (Negative) H 03/28/17 00:50 Urine Nitrate Negative (Negative) 03/28/17 00:50 Urine Bilirubin Negative (Negative) 03/28/17 00:50 Urine Urobilinogen Negative (Negative) 03/28/17 00:50 Ur Leukocyte Esterase Negative (Negative) 03/28/17 00:50 Urine WBC (Auto) Absent (Absent) 03/28/17 00:50 Urine RBC (Auto) 2+(6-10/hpf) (Absent) H 03/28/17 00:50 Urine Bacteria Absent (Absent) 03/28/17 00:50 Urine Glucose 1+(50 mg/dl) (Negative) H 03/28/17 00:50 Blood Type A Positive 03/27/17 12:35 Antibody Screen Negative 03/27/17 12:35 Gen: Well appearing, calm and comfortable. NAD. R Hip: Incision C/D/I, mild ecchymosis. No erythema of wound edges. BL LE: calves supple and nontender without erythema, edema or palpable cords. DF /PF intact. DP/PT pulses 2+. Sensation intact distally. Assessment: POD #3 Right hip hemiarthroplasty Plan: WBAT PT/OT Lovenox for DVT ppx Dispo per medicine
[2017-03-31] MEDS: Docusate CAP* 100 MG PO SCH ×2 (09:07→21:58)
[2017-03-31] MEDS: Enoxaparin(*) 30 MG/0.3 ML SYR SUBCUT SCH (10:18)
--- NOTE | 2017-03-31 16:37 | DCNOTE ---
Subjective Date of Service: 03/31/17 Interval History: No acute overnight events, voiding freely after montaño removed, tolerating PO, pain under better control. Still not ambulating well, hard of hearing at times. Denies SOB but was winded when walking as per staff today. Objective Active Medications: Acetaminophen (Tylenol Tab*) 650 mg PO Q4H SUSAN Last Admin: 03/31/17 13:15 Dose: 650 mg Albuterol (Ventolin 2.5 Mg/3 Ml Neb.Cristina*) 2.5 mg INH Q6H PRN PRN Reason: SOB/WHEEZING Alprazolam (Xanax Tab*) 0.25 mg PO TID PRN PRN Reason: AGITATION Last Admin: 03/29/17 10:51 Dose: 0.25 mg Docusate Sodium (Colace Cap*) 100 mg PO BID [facility] Stop: 04/04/17 20:59 Last Admin: 03/31/17 09:07 Dose: 100 mg Enoxaparin Sodium (Lovenox(*)) 30 mg SUBCUT Q24H [facility] Last Admin: 03/31/17 10:18 Dose: 30 mg Lactulose (Lactulose*) 30 ml PO DAILY PRN PRN Reason: CONSTIPATION Last Admin: 03/31/17 09:07 Dose: 30 ml Metoclopramide HCl (Reglan Iv*) 10 mg IV Q6H PRN PRN Reason: NAUSEA/VOMITING Last Admin: 03/28/17 07:54 Dose: 10 mg Morphine Sulfate (Morphine Inj (Syringe)*) 2 mg IV Q4H PRN PRN Reason: PAIN - BREAKTHROUGH Last Admin: 03/28/17 07:55 Dose: 2 mg Ondansetron HCl (Zofran Inj*) 4 mg IV Q6H PRN PRN Reason: NAUSEA Last Admin: 03/27/17 15:58 Dose: 4 mg Oxycodone HCl (Roxycodone Tab*) 5 mg PO Q4H PRN PRN Reason: PAIN - MODERATE Oxycodone HCl (Roxycodone Tab*) 10 mg PO Q4H PRN PRN Reason: PAIN - SEVERE Last Admin: 03/31/17 14:56 Dose: 10 mg Vital Signs - 8 hr 03/31/17 03/31/17 03/31/17 09:46 11:16 14:56 Temperature 97.6 F Pulse Rate 73 74 Respiratory 18 20 18 Rate Blood Pressure 122/60 (mmHg) O2 Sat by Pulse 95 96 Oximetry Oxygen Devices in Use Now: None Appearance: alert, NAD Eyes: No Scleral Icterus, PERRLA Ears/Nose/Mouth/Throat: Mucous Membranes Moist Neck: NL Appearance and Movements; NL JVP Respiratory: Symmetrical Chest Expansion and Respiratory Effort, Clear to Auscultation Cardiovascular: NL Sounds; No Murmurs; No JVD, RRR Extremities: No Edema, No Clubbing, Cyanosis Skin: No Rash or Ulcers - dressing CDI Neurological: Alert and Oriented x 3 Nutrition: Taking PO's Result Diagrams: 03/29/17 09:23 03/29/17 09:23 Assess/Plan/Problems-Billing Assessment: This is a 72 year old male with hx of COPD, s/p R hemiarthroplasty, POD3. - Patient Problems (1) Femoral neck fracture Code(s): S72.009A - FRACTURE OF UNSP PART OF NECK OF UNSP FEMUR, INIT SNOMED Code(s): 2861781 Comment: - POD3 - Primary POC as per ortho - Hip precautions - Pain control as needed - Cleared by ortho for DC (2) COPD (chronic obstructive pulmonary disease) Code(s): J44.9 - CHRONIC OBSTRUCTIVE PULMONARY DISEASE, UNSPECIFIED SNOMED Code(s): 66300825 Comment: - Supplemental O2 as needed, keep sats>90% - IS 10x/hr while awake - Add albuterol nebs PRN for wheezing (3) Leukocytosis Code(s): D72.829 - ELEVATED WHITE BLOOD CELL COUNT, UNSPECIFIED SNOMED Code(s) : 475894427 Comment: - Resolved - Likely recative 2/2 fracture - Remains afebrile (4) Agitation Code(s): R45.1 - RESTLESSNESS AND AGITATION SNOMED Code(s): 212147187 Comment: - Likely 2/2 stress of hospitalization and injury - Xanax PRN - Mood remains stable (5) Tobacco abuse Code(s): Z72.0 - TOBACCO USE SNOMED Code(s): 161833137 Comment: - Offered nicotine replacement, patient declined - Counseled on cessation (6) Acute retention of urine Code(s): R33.8 - OTHER RETENTION OF URINE SNOMED Code(s): 212730573 Comment: - Completely resolved (7) Constipation due to opioid therapy Code(s): K59.03 - DRUG INDUCED CONSTIPATION; T40.2X5A - ADVERSE EFFECT OF OTHER OPIOIDS, INITIAL ENCOUNTER SNOMED Code(s): 489889027507788 Comment: - Bowel regimen - Had BM today Status and Disposition: This is a 72 year old male with hx of COPD and traumatic right hip fx cleared for DC by ortho to rehab/skilled facilty when bed available. Counseling and/or Coordination of Care Minutes: coordinated with patient and staff, time spent >45 mins
[2017-04-01] MEDS: Acetaminophen TAB* 325 MG PO SCH ×3 (01:30→09:11)
--- NOTE | 2017-04-01 09:00 | PN ---
Progress Note - Progress Note Date of Service: 04/01/17 SOAP: Subjective: []Patient seen at bedside. He complains of pain with RLE movement. Denies CP, SOB, fever, chills or nausea. Objective: []Gen: Well appearing, calm and comfortable. NAD. R Hip: Dressing C/D/I without surrounding erythema BL LE: calves supple and nontender without erythema, edema or palpable cords. DF /PF intact. DP/PT pulses 2+. Sensation intact distally. Vital Signs Temp 98.7 F 04/01/17 11:26 Pulse 69 04/01/17 11:26 Resp 20 04/01/17 11:51 BP 135/64 04/01/17 11:26 Pulse Ox 97 04/01/17 11:26 Intake & Output 03/31/17 04/01/17 04/01/17 18:59 06:59 18:59 Intake Total 450 1200 120 Output Total 800 1345 Balance -350 -145 120 Intake: Oral 450 1200 120 Output: Urine 800 1345 Other: # Bowel Movements 0 Estimated Stool Amount Small Laboratory Last Values WBC 9.4 10^3/ul (3.5-10.8) 03/29/17 09:23 RBC 3.68 10^6/ul (4.0-5.4) L 03/29/17 09:23 Hgb 12.0 g/dl (14.0-18.0) L 03/29/17 09:23 Hct 35 % (42-52) L 03/29/17 09:23 MCV 96 fL (80-94) H 03/29/17 09:23 MCH 33 pg (27-31) H 03/29/17 09:23 MCHC 34 g/dl (31-36) 03/29/17 09:23 RDW 13 % (10.5-15) 03/29/17 09:23 Plt Count 172 10^3/ul (150-450) 03/29/17 09:23 MPV 8 um3 (7.4-10.4) 03/29/17 09:23 Neut % (Auto) 72.2 % (38-83) 03/29/17 09:23 Lymph % (Auto) 14.1 % (25-47) L 03/29/17 09:23 Harding % (Auto) 13.6 % (1-9) H 03/29/17 09:23 Eos % (Auto) 0 % (0-6) 03/29/17 09:23 Baso % (Auto) 0.1 % (0-2) 03/29/17 09:23 Absolute Neuts (auto) 6.8 10^3/ul (1.5-7.7) 03/29/17 09:23 Absolute Lymphs (auto) 1.3 10^3/ul (1.0-4.8) 03/29/17 09:23 Absolute Monos (auto) 1.3 10^3/ul (0-0.8) H 03/29/17 09:23 Absolute Eos (auto) 0 10^3/ul (0-0.6) 03/29/17 09:23 Absolute Basos (auto) 0 10^3/ul (0-0.2) 03/29/17 09:23 Absolute Nucleated RBC 0.01 10^3/ul 03/29/17 09:23 Nucleated RBC % 0.1 03/29/17 09:23 INR (Anticoag Therapy) 0.90 (0.77-1.02) 03/27/17 12:35 Sodium 128 mmol/L (133-145) L 03/29/17 09:23 Potassium 3.6 mmol/L (3.5-5.0) 03/29/17 09:23 Chloride 95 mmol/L (101-111) L 03/29/17 09:23 Carbon Dioxide 28 mmol/L (22-32) 03/29/17 09:23 Anion Gap 5 mmol/L (2-11) 03/29/17 09:23 BUN 11 mg/dL (6-24) 03/29/17 09:23 Creatinine 0.59 mg/dL (0.67-1.17) L 03/29/17 09:23 Est GFR ( Amer) 174.2 (>60) 03/29/17 09:23 Est GFR (Non-Af Amer) 135.4 (>60) 03/29/17 09:23 BUN/Creatinine Ratio 18.6 (8-20) 03/29/17 09:23 Glucose 94 mg/dL (70-100) 03/29/17 09:23 Calcium 8.3 mg/dL (8.6-10.3) L 03/29/17 09:23 Total Bilirubin 0.90 mg/dL (0.2-1.0) 03/29/17 09:23 AST 36 U/L (13-39) 03/29/17 09:23 ALT 14 U/L (7-52) 03/29/17 09:23 Alkaline Phosphatase 46 U/L (34-104) 03/29/17 09:23 Total Protein 5.8 g/dL (6.4-8.9) L 03/29/17 09:23 Albumin 3.1 g/dL (3.2-5.2) L 03/29/17 09:23 Globulin 2.7 g/dL (2-4) 03/29/17 09:23 Albumin/Globulin Ratio 1.1 (1-3) 03/29/17 09:23 Urine Color Jodie 03/28/17 00:50 Urine Appearance Turbid 03/28/17 00:50 Urine pH 5.0 (5-9) 03/28/17 00:50 Ur Specific Taylor 1.025 (1.010-1.030) 03/28/17 00:50 Urine Protein Negative (Negative) 03/28/17 00:50 Urine Ketones Trace (Negative) H 03/28/17 00:50 Urine Blood 2+ (Negative) H 03/28/17 00:50 Urine Nitrate Negative (Negative) 03/28/17 00:50 Urine Bilirubin Negative (Negative) 03/28/17 00:50 Urine Urobilinogen Negative (Negative) 03/28/17 00:50 Ur Leukocyte Esterase Negative (Negative) 03/28/17 00:50 Urine WBC (Auto) Absent (Absent) 03/28/17 00:50 Urine RBC (Auto) 2+(6-10/hpf) (Absent) H 03/28/17 00:50 Urine Bacteria Absent (Absent) 03/28/17 00:50 Urine Glucose 1+(50 mg/dl) (Negative) H 03/28/17 00:50 Blood Type A Positive 03/27/17 12:35 Antibody Screen Negative 03/27/17 12:35 Assessment: POD #4 Right hip hemiarthroplasty Plan: []WBAT Lovenox 30 mg subq QD x 30 days DC to [facility]
[2017-04-01] MEDS: Docusate CAP* 100 MG PO SCH (09:11)
[2017-04-01] MEDS: Enoxaparin(*) 30 MG/0.3 ML SYR SUBCUT SCH (10:10)
[2017-04-01] MEDS: oxyCODONE TAB* 5 MG TAB PO PRN (11:51)
[2017-04-01 11:54] VITALS: BP 135/64
--- NOTE | 2017-04-01 12:11 | DS ---
CC: Dr. Millan; [facility]; Dr. Bentley * DISCHARGE SUMMARY: DATE OF ADMISSION: 03/27/17 DATE OF DISCHARGE: 04/01/17 PRIMARY CARE PROVIDER: Dr. Bentley. DISCHARGE DIAGNOSES: 1. Status post mechanical fall and right femoral neck fracture. The patient is status post right hip hemiarthroplasty performed by Dr. Millan on 03/28/17. 2. Postoperative agitation and urinary retention, that resolved. 3. Postoperative hyponatremia that needs to be followed with basic metabolic panel repeat in approximately a week after discharge. MEDICATIONS AT DISCHARGE: Include: 1. Lactulose on a p.r.n. basis. 2. Colace 100 mg twice a day as scheduled. 3. Oxycodone 5 mg every 4 hours p.r.n. 4. Lovenox 30 mg subcutaneously daily for total of 30 days postoperatively. 5. Xanax 0.25 mg b.i.d. p.r.n. 6. Albuterol inhaler 2 puffs every 4 hours p.r.n. 7. Acetaminophen on a p.r.n. basis. LABORATORY DATA: Studies performed during the hospital stay included: On 03/29, sodium of 128, potassium 3.6, chloride 95, carbon dioxide 28, BUN 11, creatinine 0.59. White blood cell count 11.4, hemoglobin 12.0, hematocrit 35, and platelets of 172. CONSULTATIONS DURING THE HOSPITAL STAY: Included Dr. Millan from orthopedic surgery who performed right hip hemiarthroplasty on 03/28/17. HOSPITALIZATION COURSE: Tulio Guerra is a 72-year-old male with history of COPD , who is living independently in group home apartment building and he was on no medications. He had a mechanical fall when he slipped and fell and fractured his right femoral neck. He underwent right hip hemiarthroplasty by Dr. Millan. Postoperatively, he was mildly agitated and developed urinary retention, although symptoms resolved by the time of discharge. By the time of discharge he complains of mild right hip pain. Otherwise he is mildly forgetful , but cooperative with evaluation. He was deemed to be a good candidate for [facility] facility to which he is going to be discharged on 04/01/17. PHYSICAL EXAMINATION: At the time of discharge, blood pressure 150/62, heart rate of 67 and regular, respiratory rate 16, oxygen saturation 96% on room air, temperature 98.7. General: This is a very pleasant 72-year-old male, in no acute distress. Alert, awake, and oriented x3. HEENT: Head atraumatic, normocephalic. Eyes: Pupils are equal, reactive to light and accommodation. Oropharynx clear. Mucosa moist. Neck: Supple. No JVD. No bruits bilaterally. Cardiovascular: Regular rate and rhythm. No murmur. Respiratory: Clear to auscultation bilaterally. Abdomen: Soft, nontender. Bowel sounds are present in all 4 quadrants. Extremities: There is no edema. Pulses are +2 bilaterally. No clubbing or cyanosis. Right postoperative hip was noted to have an incision stapled, with no evidence of dehiscence. No discharge and no infection. There was also no hematoma noted. Neuro Evaluation: Speech clear. Cranial nerves II through XII are grossly intact. Motor strength is 5/5 bilaterally. DISCHARGE INSTRUCTIONS: 1. At discharge, the patient is recommended to continue physical therapy and occupational therapy at [facility]. The patient is to be weightbearing as tolerated. 2. To followup with Dr. Millan in approximately 1 week. 3. The patient is to have wound checks and dressing changes, to cover with dry gauze on a daily basis. 4. The patient is to continue Lovenox for a total of 30 days postoperatively. Please note that this is a short summary of the patient's hospital stay. Please refer to further medical records for details. TIME SPENT: Approximately 45 minutes were spent on the patient's discharge. [id number]/[facility] #: [id number] [facility]IVERSIDE HOSPITALJesús
--- NOTE | 2017-04-02 11:47 | RAD ---
HISTORY: Right hip fracture, trauma COMPARISONS: Plain film dated March 27, 2017 TECHNIQUE: Multiple contiguous axial CT images are obtained of the pelvis, with coronal and sagittal multiplanar reconstructions, without intravenous contrast administration. Images are submitted for review on April 02, 2017 FINDINGS: BONE DENSITY: Normal. BONES: Again noted is an angulated and somewhat impacted fracture of the right femoral neck, with minimal involvement of the greater trochanter. 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 Degenerative changes are noted of the spine. MUSCULATURE: Unremarkable ALIGNMENT: There is no dislocation. SOFT TISSUES: There is atherosclerosis of the abdominal aorta and its branches. OTHER FINDINGS: None. IMPRESSION: RIGHT FEMORAL NECK FRACTURE DESCRIBED ABOVE.
== END 2017-04-01 12:35 | DRG 470 ==
LOC: ED 10:24 → SSU 14:21
PROVIDERS: ADMIT Internal Medicine; ATTEND Internal Medicine
PROC: 0SRR019 Replacement of Right Hip Joint, Femoral Surface with Metal Synthetic Substitute, Cemented, Open Approach (ICD-10-PCS; principal; 2017-03-28 09:45)
DX: S72.001A Fracture of unspecified part of neck of right femur, initial encounter for closed fracture (principal); J44.9 Chronic obstructive pulmonary disease, unspecified; E87.1 Hypo-osmolality and hyponatremia; W06.XXXA Fall from bed, initial encounter; Y92.003 Bedroom of unspecified non-institutional (private) residence as the place of occurrence of the external cause; F17.210 Nicotine dependence, cigarettes, uncomplicated; D72.829 Elevated white blood cell count, unspecified; R45.1 Restlessness and agitation; K59.03 Drug induced constipation; T40.2X5A Adverse effect of other opioids, initial encounter; Y92.230 Patient room in hospital as the place of occurrence of the external cause; R33.9 Retention of urine, unspecified
CPT/HCPCS: 36415; 71010; 72192; 80053; 81003; 81015; 85025; 85610; 86850; 86900; 86901; 88305; 88311; 90686; 90732; 93005; 94760; 99406; A9270-GY; C1776; J0360; J0690; J0780; J1100; J1644; J1650; J2250; J2270; J2405; J2765; J3010; J7614